=== PATIENT | male | born 1955 | race Caucasian/White ===

== ENCOUNTER 2017-02-28 10:30 | Emergency (ER) | payer OTHER ==
[~2017-02-28] VITALS: Ht 185.4 cm; Wt 81.7 kg
[~2017-02-28 10:30] MED LIST: ADULT LOW DOSE81 MG PO; CLOPIDOGREL75 MG PO; DEXAMETHASONE0.5 MG; FISHOIL; HYDROCODON-ACE1 EAC7 PO; LEVOTHYROXIN0.137 M1 PO; LEVOTHYROXINE 0.15MG PO; LIPITOR20 MG PO; NEXIUM40 MG PO; TOPROL XL25 MG PO; TRICOR145 MG PO; VITAMIN B-1100 M1 PO; VITAMIN C100 M1 PO; VITAMIN E 400I400 I1 PO
[2017-02-28] MEDS ORDERED: B12INJ IM (10:41)
[2017-02-28] MEDS ORDERED: PROBIOTIC1 EAC1 PO (10:41)
== END 2017-02-28 11:46 | disposition home or self-care (01) ==
LOC: ER 10:30
DX: R04.0 Epistaxis (principal); I10 Essential (primary) hypertension; E03.9 Hypothyroidism, unspecified; K21.9 Gastro-esophageal reflux disease without esophagitis

== ENCOUNTER 2017-03-08 09:16 | Emergency (ER) | payer OTHER ==
[~2017-03-08] VITALS: Ht 182.9 cm; Wt 87.5 kg
[~2017-03-08 09:16] MED LIST changes: +B12INJ IM; +PROBIOTIC1 EAC1 PO
[2017-03-08] MEDS ORDERED: VITAMINC500 PO (09:58)
[2017-03-08 10:04] LABS: BASOPHILS 1.1 % (0.0-2.0); EOSINOPHILS 1.3 % (0.0-3.0); HEMATOCRIT 40.7 % (42.0-52.0); HEMOGLOBIN 14.2 gm/dL (14.0-18.0); LYMPHOCYTES 21.2 % (24.0-44.0); MCHC 34.8 g/dL (28.0-37.0); MCV 89.1 fL (80.0-100.0); MONOCYTES 8.1 % (1.0-8.0); PLATELET COUNT 245 thou/uL (150-400); POLYS 68.3 % (36.0-66.0); RBC 4.57 mil/uL (4.50-6.00); RDW 13.5 % (10.5-14.5); WBC 7.3 thou/uL (4.0-11.0)
[2017-03-08 10:07] LABS: MANUAL DIFF NO
[2017-03-08 10:10] LABS: CALCIUM 9.5 mg/dL (8.5-10.1); CREATININE 1.1 mg/dL (0.7-1.3); POTASSIUM 3.7 mmol/L (3.5-5.1)
== END 2017-03-08 10:25 | disposition home or self-care (01) ==
LOC: ER 09:16
PROVIDERS: Physician Assistant
DX: R04.0 Epistaxis (principal); I10 Essential (primary) hypertension; E03.9 Hypothyroidism, unspecified; E78.00 Pure hypercholesterolemia, unspecified; K21.9 Gastro-esophageal reflux disease without esophagitis

== ENCOUNTER → 2017-08-06 | Outpatient (CLI) | payer OTHER ==
[~2017-08-06] MED LIST changes: +VITAMINC500 PO
[2017-08-06 09:11] LABS: CALCIUM 9.4 mg/dL (8.5-10.1); CREATININE 1.1 mg/dL (0.7-1.3); POTASSIUM 4.2 mmol/L (3.5-5.1)
== END ==
LOC: CAT 08:18
PROVIDERS: Internal Medicine
DX: Z01.818 Encounter for other preprocedural examination (principal); I71.2 Thoracic aortic aneurysm, without rupture; I25.10 Atherosclerotic heart disease of native coronary artery without angina pectoris; R91.8 Other nonspecific abnormal finding of lung field; J98.11 Atelectasis

== ENCOUNTER → 2018-08-25 | Outpatient (CLI) | payer OTHER ==
[2018-08-25 08:44] LABS: CALCIUM 9.1 mg/dL (8.5-10.1); POTASSIUM 4.1 mmol/L (3.5-5.1)
== END ==
LOC: CAT 07:52
PROVIDERS: Internal Medicine
DX: Z01.812 Encounter for preprocedural laboratory examination (principal); I71.2 Thoracic aortic aneurysm, without rupture; I25.10 Atherosclerotic heart disease of native coronary artery without angina pectoris; M47.814 Spondylosis without myelopathy or radiculopathy, thoracic region

== ENCOUNTER 2019-06-23 12:45 | Observation (INO) | payer OTHER ==
[~2019-06-23] VITALS: Ht 182.9 cm; Wt 87.5 kg
[2019-06-23] VITALS (10 sets, daily range): BP systolic 127–148; BP diastolic 79–90
[2019-06-23 13:18] LABS: MCH 30.8 pg (26.0-34.0); MCHC 33.3 g/dL (28.0-37.0); MCV 92.3 fL (80.0-100.0); RBC 4.55 mil/uL (4.50-6.00); RDW 15.3 % (10.5-14.5); WBC 10.2 thou/uL (4.0-11.0)
[2019-06-23 13:38] LABS: CALCIUM 9.4 mg/dL (8.5-10.1); POTASSIUM 3.4 mmol/L (3.5-5.1)
[2019-06-23] MEDS ORDERED: VASCEPA1 GM PO (13:44)
[2019-06-23] MEDS ORDERED: LEVOXYL150 MCG PO (13:45)
[2019-06-23] MEDS ORDERED: TOPROL XL50 MG PO (13:46)
[2019-06-23] MEDS ORDERED: BENICAR20 MG PO (13:47)
[2019-06-23] MEDS ORDERED: B-121000 MC2 PO (13:48)
[2019-06-23] MEDS ORDERED: ASA81BEC PO (13:53)
[2019-06-23] MEDS ORDERED: TAMSULOSIN HCL0.4 MG PO (14:33)
--- NOTE | 2019-06-23 16:39 | CATHLAB ---
[facility] [address] [place] [address] INVASIVE PROCEDURE REPORT Name: DRISS MEDRANO Room #: 160-1 ADM IN M.R.#: [id number] Admission: 06/23/19 Attend Phys: Richard Hunter, Discharge: Date of : 57 Report #: [id number] THIS REPORT FOR: //name// APPROVED REPORT Study performed: 06/23/2019 14:08:50 Patient Details Patient Status: Out-Patient Room #: The patient is a 63 year-old male Event Personnel Richard Hunter Bartenders, aJg Anne RN, Cristhian Best, Ashley Turner RTR Scrub Procedures Performed Left Heart Cath w/or w/o Coronaries [id number] [facility] Indication Chest pain Procedure Narrative The Right Groin^ was infiltrated with 1% Lidocaine subcutaneous anesthesia. A PINNACLE 6FR Sheath #[id number] sheath was inserted into the RFA^. Coronary angiography was performed using coronary diagnostic catheters. The right coronary system was accessed and visualized with a JR4 catheter. The left coronary system was accessed and visualized with a 6FR JL 4.5 #[id number] catheter. The left ventricle was accessed and visualized with a PIGTAIL catheter. Left ventricular/Aortic Valve gradient assessed via catheter pullback. Left ventriculogram was performed in 30 degree projection. Closure device was deployed with a 6 Fr MYNXGRIP 6/7F #[id number]. The patient tolerated the procedure well and there were no complications associated with the procedure. There was no hematoma. Intraoperative Conscious Sedation Sedation start time: 14.56 Case end Time: 15.47 Fentanyl 50 mcg Versed 2 mg Fluoro Time: 644.00 minutes Dose: DAP 5185.00 cGycm2 644 mGy Contrast Type and Amount: Omnipaque 170 ml Coronary Angiography [address] [address] INVASIVE PROCEDURE REPORT Name: DRISS MEDRANO BRASHEAR Room #: 160-1 [facility] IN M.R.#: [id number] Admission: 06/23/19 Attend Phys: Richard Hunter, Discharge: Date of : 57 Report #: [id number] The patient's coronary anatomy is co- dominant. Diagnostic Cath Left Main Normal left main LAD Mild proximal to mid LAD plaquing within previously placed stent. The apical portion of the LAD was occluded with fairly extensive left to left collateralization. Collateralization is provided by the first septal perforating branch which exhibits a moderate ostial stenosis. Diagonal 1 40% ostial first diagonal branch stenosis Circumflex Large codominant circumflex. OM1 Large first marginal branch, angiographically normal L PDA Moderate size posterior descending branch, angiographically normal Right Coronary Moderate size, angiographically normal right coronary R PDA Small-moderate posterior descending branch, angiographically normal Left Ventriculography The left ventricle is normal in size with normal contractility. The left ventricular ejection fraction is estimated to be 60-65%. Left ventricular wall motion abnormalities are not present. There is no mitral insufficiency. Hemodynamics The aortic pressure is 120/70 mmHg with a mean of 92 mmHg. The left ventricular pressure is 114/-7 mmHg with a mean of mmHg. The left ventricular end diastolic pressure is 17 mmHg. There was no gradient across the aortic valve upon pullback. Pullback from the left ventricle to the aorta revealed no gradient across the aortic valve. Conclusion 1. Normal global and regional left ventricular systolic function. There appears to be aneurysmal dilatation of the ascending aorta just above the aortic valve and below the Hemashield graft. EF 65% 2. Normal left main 3. Distal LAD occlusion with left to left collateralization. Widely patent proximal to mid LAD stents 3. Normal codominant circumflex 4. Normal right coronary. [facility] [address] [place] [address] INVASIVE PROCEDURE REPORT Name: MARCELADRISS MONTEZ Room #: 160-1 ADM IN .R.#: [id number] Admission: 06/23/19 Attend Phys: Richard Hunter, Discharge: Date of : 57 Report #: [id number] Recommendations Aggressive Medical Therapy <ELECTRONICALLY SIGNED> By: Richard Hunter MD, [facility] 06/23/19 1639 1639 1639 Richard Hunter MD, FACC /INF
[2019-06-23] MEDS ORDERED: IMDUR 30 MG TAB30 M1 PO (16:54)
[2019-06-23] MEDS ORDERED: RANOLAZINE ER500 MG PO (16:54)
--- NOTE | 2019-06-23 18:18 | NUR ---
ASSUMED CARE AT 1600, POST CATH, ON POST CATH VS. DENIES PAIN, NAUSEA, VOMITING. ON BEDREST UNTIL 1850. RIGHT GROIN SITE IS CLEAN, DRY, INTACT, HAS MYNX CLOUSURE DEVICE. RECIVING IV FLUIDS. WILL CONTINUE TO ASSESS AND ASSIST WITH ADLs NEEDED.
--- NOTE | 2019-06-23 19:56 | NUR ---
OFF OF BEDREST AT 1900, RIGHT GROIN SITE CLEAN, DRY, INTACT, NO HEMATOMA. PT GOT UP FROM BEDREST, WENT TO RESTROOM SITE WAS STILL C/D/I. POST VITAL SIGN STABLE WELL. DC PAPER WORK GIVEN, PIV WAS TAKEN OUT. PT WAS TRANSPORTED OUT OF THE HOSPITAL BY THIS NURSE.
== END 2019-06-23 19:58 | disposition home or self-care (01) ==
LOC: CATH 12:45 → TBACV 14:57 → 2N 17:00
PROVIDERS: ADMIT Internal Medicine
DX: I20.0 Unstable angina (principal)

== ENCOUNTER → 2019-11-15 | Outpatient (CLI) | payer OTHER ==
[~2019-11-15] MED LIST changes: +ASA81BEC PO; +B-121000 MC2 PO; +BENICAR20 MG PO; +IMDUR 30 MG TAB30 M1 PO; +LEVOXYL150 MCG PO; +RANOLAZINE ER500 MG PO; +TAMSULOSIN HCL0.4 MG PO; +TOPROL XL50 MG PO; +VASCEPA1 GM PO
== END ==
LOC: SJCVCIMAG 08:22
DX: R94.31 Abnormal electrocardiogram [ECG] [EKG] (principal); I45.10 Unspecified right bundle-branch block; I21.09 ST elevation (STEMI) myocardial infarction involving other coronary artery of anterior wall; I08.8 Other rheumatic multiple valve diseases; R06.02 Shortness of breath; I25.10 Atherosclerotic heart disease of native coronary artery without angina pectoris; I71.2 Thoracic aortic aneurysm, without rupture; I10 Essential (primary) hypertension; E78.5 Hyperlipidemia, unspecified; Z95.4 Presence of other heart-valve replacement

== ENCOUNTER → 2019-11-17 | Outpatient (CLI) | payer OTHER | LOC: SJCVCIMAG 09:29 | DX: R16.0 Hepatomegaly, not elsewhere classified (principal); R10.9 Unspecified abdominal pain ==

== ENCOUNTER → 2020-02-26 | Outpatient (CLI) | payer OTHER ==
[~2020-02-26] VITALS: Ht 182.9 cm; Wt 83.5 kg
[~2020-02-26] MED LIST changes: +MAGNESIUM250 M1 PO; +RANEXA500 MG PO; +REPATHA SU140 MG/1 M SUBQ; +VITAMIN B-6100 MG PO; +VITAMIN D21250 MC1 PO
--- NOTE | ~2020-02-26 | P ---
[facility] [place] [address] PROCEDURE REPORT Name: DRISS MEDRANO Room #: [facility].#: [id number] Admission: 02/26/20 Attend Phys: Wilian Landa MD Discharge: Date of : 57 Report #: [id number] THIS REPORT FOR: cc: Wilian Pereyra MD, John H. MD Thesing,Wilian Smallwood MD ~ CC: Wilian Landa DATE OF SERVICE: 02/26/2020 OUTPATIENT UPPER ENDOSCOPY BRIEF HISTORY: The patient is a 64-year-old male who was seen recently for abnormal liver function studies. He also has had bouts of nausea and vomiting with occasional epigastric pain and discomfort. PREOPERATIVE DIAGNOSES: Nausea, vomiting, abdominal pain and abnormal liver function studies. POSTOPERATIVE DIAGNOSES: 1. Mild diffuse gastritis. 2. A 2 cm sliding type hiatus hernia. MEDICATIONS: Deep sedation with propofol per anesthesia. SPECIMEN: Biopsies of gastritis. ESTIMATED BLOOD LOSS: 3 mL. PROCEDURE: EGD with biopsy. FINDINGS: Prior to propofol sedation, procedure of upper endoscopy discussed with the patient as well as potential risks and its complications. He indicates he understands and desires to proceed. DESCRIPTION OF PROCEDURE: With the patient in left lateral decubitus position, the Olympus video endoscope was inserted in the cervical esophagus under direct vision without difficulty. Examination of this organ throughout its entire length revealed normal esophageal mucosa down to the squamocolumnar junction. The squamocolumnar junction was inspected and noted to be unremarkable. There was no evidence of ulcers, erosions or esophagitis. A stricture or ring was not seen. There was no endoscopic evidence of esophagitis. Also with regards to abnormal liver function studies, there is no evidence of esophageal varices. A small 2 cm sliding type hiatus hernia was seen. The mucosa and hernia was [facility] [address] [place] [address] PROCEDURE REPORT Name: DRISS MEDRANO [id number] Admission: 02/26/20 Attend Phys: Wilian Landa MD Discharge: Date of : 57 Report #: [id number] unremarkable. The scope was advanced in the stomach, was examined on end view as well as retroflexed views. There was antral erythema, but no ulcers or erosions were seen. There were no retained solids or liquids in the stomach. Upon retroflexion, no mass or lesions were seen. Pylorus, duodenal bulb, and postbulbar duodenal sweep were all inspected and noted to be unremarkable. At that point, the scope was slowly withdrawn and careful circumferential views confirmed the above findings. The patient tolerated the procedure well. CONDITION OF THE PATIENT UPON DISCHARGE: Following procedure, the patient was drowsy, arousable and conversant and will be discharged home when fully ambulatory. We have instructed to the patient and family at the time of discharge. We will followup on the pathology. A specific lesion to explain his nausea and vomiting and occasional epigastric pain is not identified. We will treat empirically with pantoprazole 40 mg daily. Also, we will give him Zofran 4 mg 1-2 every 6 hours as needed for nausea for bad episodes. If his symptoms are no better in 4-6 weeks, he will return to the office for followup. He may need further evaluation such as gastric emptying study or even additional imaging of the abdomen. By: 1001 1212 Wilian Landa MD /nt
--- NOTE | 2020-02-27 15:07 | PATH ---
[facility] [address] [place] [address] PATHOLOGY RPT PROCEDURE Name: MARCELADRISS MELIDA Room #: REG [facility].#: [id number] Admission: 02/26/20 Date of : 57 Discharge: Report #: [id number] Path Case #: [id number] [facility] Accession Number: [id number] . 01 Material submitted: . stomach - BX OF GASTRITIS . 01 Clinical history: . [id number] PAIN,NAUSEA . 02 Diagnosis: Gastric mucosa, gastritis, rule out H. pylori, endoscopic biopsy: - Mild reactive gastropathy. - Negative for intestinal metaplasia or atrophy. - Negative for Helicobacter pylori (properly controlled immunohistochemical performed). (IUV:pit 02/27/2020) QTP 02/27/2020 1333 Local . 02 Electronically signed: . Corin Padilla MD, Pathologist NPI- [id number] . 01 Gross description: . The specimen is received in formalin, labeled "Driss Lacy, BX of gastritis" and consists of multiple fragments of pierce tissue measuring 1.1 x 0.8 x 0.2 cm aggregate which are entirely submitted in A1. (SDY; 02/26/2020) SYU/SYU 02/26/2020 1623 Local . 02 Pathologist provided ICD-10: K31.9 . 02 CPT . 624514, [id number] Specimen Comment: A courtesy copy of this report has been sent to [phone], [phone] Specimen Comment: [phone] Specimen Comment: Report sent to / DR PERALES Performed at: [address], [place], [place] [id number] MD Juanjo Castro MD Phone: [phone] Performed at: [address] [id number] MD Corin Padilla MD Phone: [phone]
== END | disposition home or self-care (01) ==
LOC: GI 08:23
PROVIDERS: ATTEND Specialist
DX: R10.13 Epigastric pain (principal); R11.2 Nausea with vomiting, unspecified; K31.9 Disease of stomach and duodenum, unspecified; I10 Essential (primary) hypertension; E78.5 Hyperlipidemia, unspecified; E03.9 Hypothyroidism, unspecified; G47.30 Sleep apnea, unspecified; K21.9 Gastro-esophageal reflux disease without esophagitis; Z11.59 Encounter for screening for other viral diseases; Z98.890 Other specified postprocedural states; Z79.899 Other long term (current) drug therapy; Z90.49 Acquired absence of other specified parts of digestive tract; R94.5 Abnormal results of liver function studies
CPT/HCPCS: 62110; 62900

== ENCOUNTER → 2020-10-16 | Outpatient (CLI) | payer OTHER ==
[2020-10-16 10:16] LABS: CREATININE 1.1 mg/dL (0.7-1.3)
== END ==
LOC: CAT 10-09 08:57
PROVIDERS: ATTEND Internal Medicine
DX: I71.2 Thoracic aortic aneurysm, without rupture (principal); I25.10 Atherosclerotic heart disease of native coronary artery without angina pectoris

== ENCOUNTER → 2021-03-24 | Outpatient (CLI) | payer OTHER | LOC: SJCVCIMAG 07:38 | PROVIDERS: ATTEND Internal Medicine | DX: I08.8 Other rheumatic multiple valve diseases (principal); I10 Essential (primary) hypertension; I25.10 Atherosclerotic heart disease of native coronary artery without angina pectoris ==